=== PATIENT | female | born 1930 | race Caucasian/White ===

== ENCOUNTER 2016-11-14 00:47 | Inpatient (IN) | payer OTHER ==
[2016-11-14] VITALS (7 sets, daily range): BP systolic 92–137; BP diastolic 39–57
[~2016-11-14] VITALS: Ht 149.9 cm; Wt 55.9 kg
[~2016-11-14 00:47] MED LIST: ALLOPURINOL100 MG PO; AMLODIPINE BES10 MG PO; BACLOFEN10 MG PO; BAYER ASPIRIN R81 MG PO; CARVEDILOL25 M1 PO; CHLORTHALIDONE25 MG PO; COD LIVER OIL1 CA1 PO; FLUOXETINE HCL20 MG PO; GENTAMICIN80 MG/100 IV; LAC PO; LASIX40 MG PO; LEVOTHYROXIN0.075 M2 PO; LIPITOR40 MG PO; MAC100 PO; NORCO1 TA2 PO; POTASSIUM CHLO20 ME1 PO
[2016-11-14 01:27] LABS: BASOPHIL % 0.4 % (0-2); PLATELET COUNT 240 x10^3mcL (130-400); RED CELL DISTRIBUTION WIDTH 13.8 % (11.5-14.5)
[2016-11-14 01:41] LABS: ALBUMIN 3.8 g/dL (3.4-5.0); ALKALINE PHOSPHATASE 104 U/L (46-116); ALT/SGPT 16 U/L (14-59); AST/SGOT 23 U/L (15-37); BILIRUBIN TOTAL 0.87 mg/dL (0.20-1.00); CARBON DIOXIDE 32.3 mmol/L (21-32); CHLORIDE SERUM 96 mmol/L (98-107); CREATININE SERUM 2.7 mg/dL (0.6-1.0); GLUCOSE SERUM 129 mg/dL (74-106); SODIUM SERUM 136 mmol/L (136-145); TOTAL PROTEIN, SERUM 7.3 g/dL (6.4-8.2)
[2016-11-14 04:07] LABS: CHOLESTEROL/HDL RATIO 4.9; MAGNESIUM 2.2 mg/dL (1.8-2.4); PHOSPHOROUS 3.3 mg/dL (2.5-4.9)
[2016-11-14 04:13] LABS: T3 TOTAL 0.73 ng/mL
[2016-11-14 04:16] LABS: FREE T4 1.76 ng/dL (0.76-1.46); FREE THYROXINE INDEX 4.8 ug/dL (1.4-4.5); T4(THYROXINE) 11.2 ug/dL (4.7-13.3)
[2016-11-14] MEDS ORDERED: FERROUS SULFAT325 M2 PO (04:23)
[2016-11-14 18:10] LABS: UA SPECIFIC GRAVITY 1.025 (1.005-1.035); microscopic required? YES; urine erythrocyte NEGATIVE (NEGATIVE)
[2016-11-15 05:59] VITALS: BP 115/56
[2016-11-15 06:25] LABS: CALCIUM 8.5 mg/dL (8.5-10.1); CARBON DIOXIDE 29.4 mmol/L (21-32); CHLORIDE SERUM 103 mmol/L (98-107); CREATININE SERUM 2.6 mg/dL (0.6-1.0); GLUCOSE SERUM 102 mg/dL (74-106); MAGNESIUM 2.1 mg/dL (1.8-2.4); PHOSPHOROUS 3.4 mg/dL (2.5-4.9); SODIUM SERUM 140 mmol/L (136-145)
[2016-11-15 06:38] LABS: BASOPHIL % 1.6 % (0-2); PLATELET COUNT 192 x10^3mcL (130-400); RED CELL DISTRIBUTION WIDTH 13.4 % (11.5-14.5)
[2016-11-15 09:24] VITALS: BP 146/47
[2016-11-15 13:54] VITALS: BP 135/78
[2016-11-15 18:02] VITALS: BP 119/37
[2016-11-15 21:33] VITALS: BP 113/49
[2016-11-16 05:48] VITALS: BP 120/49
[2016-11-16 06:09] LABS: BASOPHIL % 0.4 % (0-2); PLATELET COUNT 187 x10^3mcL (130-400)
[2016-11-16 06:22] LABS: CALCIUM 8.1 mg/dL (8.5-10.1); CARBON DIOXIDE 25.1 mmol/L (21-32); CHLORIDE SERUM 110 mmol/L (98-107); CREATININE SERUM 2.1 mg/dL (0.6-1.0); GLUCOSE SERUM 112 mg/dL (74-106); MAGNESIUM 1.7 mg/dL (1.8-2.4); PHOSPHOROUS 2.3 mg/dL (2.5-4.9); POTASSIUM SERUM 3.2 mmol/L (3.5-5.1); SODIUM SERUM 143 mmol/L (136-145)
[2016-11-16 06:53] LABS: RED CELL DISTRIBUTION WIDTH 14.8 % (11.5-14.5)
[2016-11-16 09:17] VITALS: BP 138/40
[2016-11-16 14:04] VITALS: BP 123/53
[2016-11-16 18:00] VITALS: BP 138/70
[2016-11-16 22:17] VITALS: BP 120/44
[2016-11-17 05:58] VITALS: BP 144/50
[2016-11-17 06:39] LABS: CALCIUM 8.5 mg/dL (8.5-10.1); CARBON DIOXIDE 25.2 mmol/L (21-32); CHLORIDE SERUM 110 mmol/L (98-107); CREATININE SERUM 1.7 mg/dL (0.6-1.0); GLUCOSE SERUM 106 mg/dL (74-106); MAGNESIUM 1.5 mg/dL (1.8-2.4); POTASSIUM SERUM 3.3 mmol/L (3.5-5.1); SODIUM SERUM 144 mmol/L (136-145)
[2016-11-17 06:45] LABS: BASOPHIL % 0.3 % (0-2); PLATELET COUNT 187 x10^3mcL (130-400); RED CELL DISTRIBUTION WIDTH 14.8 % (11.5-14.5)
[2016-11-17 09:16] VITALS: BP 144/45
[2016-11-17 14:00] VITALS: BP 122/44
[2016-11-17 17:06] VITALS: BP 121/43
[2016-11-17 21:43] VITALS: BP 149/51
[2016-11-18 06:08] VITALS: BP 139/58
[2016-11-18 07:40] LABS: BASOPHIL % 0.3 % (0-2); PLATELET COUNT 187 x10^3mcL (130-400)
[2016-11-18 07:53] LABS: CALCIUM 8.3 mg/dL (8.5-10.1); CARBON DIOXIDE 23.4 mmol/L (21-32); CHLORIDE SERUM 110 mmol/L (98-107); CREATININE SERUM 1.5 mg/dL (0.6-1.0); GLUCOSE SERUM 106 mg/dL (74-106); PHOSPHOROUS 2.4 mg/dL (2.5-4.9); POTASSIUM SERUM 3.2 mmol/L (3.5-5.1); SODIUM SERUM 145 mmol/L (136-145)
[2016-11-18 07:54] LABS: RED CELL DISTRIBUTION WIDTH 14.8 % (11.5-14.5)
[2016-11-18 08:00] VITALS: BP 131/55
[2016-11-18 09:10] VITALS: BP 118/52
[2016-11-18 12:22] VITALS: BP 125/69
[2016-11-18 15:52] VITALS: BP 139/68
[2016-11-18 22:27] VITALS: BP 130/52
[2016-11-19 05:56] LABS: BASOPHIL % 0.3 % (0-2); PLATELET COUNT 181 x10^3mcL (130-400); RED CELL DISTRIBUTION WIDTH 14.4 % (11.5-14.5)
[2016-11-19 06:33] VITALS: BP 138/58
[2016-11-19 06:39] LABS: CALCIUM 8.1 mg/dL (8.5-10.1); CARBON DIOXIDE 23.5 mmol/L (21-32); CHLORIDE SERUM 111 mmol/L (98-107); CREATININE SERUM 1.3 mg/dL (0.6-1.0); GLUCOSE SERUM 106 mg/dL (74-106); MAGNESIUM 1.6 mg/dL (1.8-2.4); PHOSPHOROUS 3.1 mg/dL (2.5-4.9); POTASSIUM SERUM 3.6 mmol/L (3.5-5.1); SODIUM SERUM 144 mmol/L (136-145)
[2016-11-19 07:55] VITALS: BP 144/55
[2016-11-19] MEDS ORDERED: LAC PO (16:51)
[2016-11-19] MEDS ORDERED: [UNRECOGNIZED DRUG - OTHER] IV (16:51)
[2016-11-19 18:09] VITALS: BP 138/60
[2016-11-19 22:15] VITALS: BP 145/66
[2016-11-20 05:47] VITALS: BP 147/60
[2016-11-20 06:13] LABS: BASOPHIL % 0.4 % (0-2); PLATELET COUNT 182 x10^3mcL (130-400); RED CELL DISTRIBUTION WIDTH 14.5 % (11.5-14.5)
[2016-11-20 06:47] LABS: CARBON DIOXIDE 24.7 mmol/L (21-32); CHLORIDE SERUM 109 mmol/L (98-107); CREATININE SERUM 1.2 mg/dL (0.6-1.0); GLUCOSE SERUM 100 mg/dL (74-106); MAGNESIUM 2.3 mg/dL (1.8-2.4); PHOSPHOROUS 3.1 mg/dL (2.5-4.9); SODIUM SERUM 142 mmol/L (136-145)
[2016-11-20 09:10] VITALS: BP 137/34
[2016-11-20 10:00] VITALS: BP 137/45
[2016-11-20 18:59] VITALS: BP 137/45
== END 2016-11-20 19:45 | DRG 56 ==
LOC: ED 00:47 → DU 03:23 → MU 11-17 22:48
PROVIDERS: Emergency Medicine; Family Medicine; ADMIT Family Medicine
DX: G30.9 Alzheimer's disease, unspecified (principal); I21.4 Non-ST elevation (NSTEMI) myocardial infarction; N17.0 Acute kidney failure with tubular necrosis; N39.0 Urinary tract infection, site not specified; I67.4 Hypertensive encephalopathy; I42.2 Other hypertrophic cardiomyopathy; F02.80 Dementia in other diseases classified elsewhere, unspecified severity, without behavioral disturbance, psychotic disturbance, mood disturbance, and anxiety; E11.51 Type 2 diabetes mellitus with diabetic peripheral angiopathy without gangrene; J44.9 Chronic obstructive pulmonary disease, unspecified; I10 Essential (primary) hypertension; E87.6 Hypokalemia; M47.892 Other spondylosis, cervical region; E78.5 Hyperlipidemia, unspecified; B96.29 Other Escherichia coli [E. coli] as the cause of diseases classified elsewhere; I27.2 Other secondary pulmonary hypertension; I65.23 Occlusion and stenosis of bilateral carotid arteries; Z16.24 Resistance to multiple antibiotics; I70.0 Atherosclerosis of aorta; I36.1 Nonrheumatic tricuspid (valve) insufficiency; Z91.81 History of falling; Z79.82 Long term (current) use of aspirin; Z68.24 Body mass index [BMI] 24.0-24.9, adult; Z87.891 Personal history of nicotine dependence
CPT/HCPCS: 83880; 84439; 97110-GP; 97116-GP; 97530-GP; A9500; J1940; J1956; J2060; J2185; J2785; J3475; J3480; J3490; J7030